=== PATIENT | female | born 1960 | race Caucasian/White ===

== ENCOUNTER → 2016-12-12 | Outpatient (CLI) | payer MEDICARE, MEDICAID ==
--- NOTE | 2016-12-12 16:05 | Diagnostic Imaging Report ---
CLINICAL INDICATION: Patient has had a total of 4 back surgeries. Patient had surgery in June from L2 to hips. Screws may have come loose. EXAM: Axial CT scan of the lumbar spine performed without IV contrast. Sagittal and coronal reformatted images are created. COMPARISON: MRI of the lumbar spine without contrast dated 04/09/2016. FINDINGS: There are interval postop changes with L2-S1 and iliac posterior lumbar fusion with bilateral spanning rods and pedicle screws. There are intervertebral disc fusion spacers seen at the L4-L5 and L5-S1 level. There is some degree of intervertebral bony fusion in the regions. There is osteolysis about the bilateral L2 pedicle screws which demonstrates roughly 2-3 mm of lucency. There is a small area of corticated lucency about the left iliac screw near the sacroiliac joint region. There is no hardware fracture. There are anterior fusion screws seen within the L4 and S1 vertebral bodies holding in the intervertebral disc fusion spacer. There are right L4 and L5 laminectomy changes. Electronic bone stimulator device is seen adjacent to the posterior elements of the lumbar spine. There is stable straightening of the upper lumbar spine. There is no evidence of acute lumbar spine fracture or dislocation. There is hypertrophic vertebral body spur seen throughout the lumbar spine and lumbar spine facet arthropathy. L1-L2: Unremarkable. L2-L3: Streak artifact greatly limits evaluation of the central canal from the L2-S1 levels. There is again seen multilevel neuroforaminal narrowing as noted on the prior study, but streak artifact also obscures regions. There is diverticulosis involving the visualized sigmoid colon with no definite CT evidence of diverticulitis. IMPRESSION: 1: There are interval postop changes with L2 through sacrum/iliac posterior fusion hardware. There is osteolysis involving the bilateral L2 pedicle screws. There is also a small area of corticated lucency about the left iliac screw near the sacroiliac joint. 2: There appears to be some degree of intervertebral bony fusion at the L4-L5 and L5-S1 levels. 3: Of note, visualization of the central canal and neuroforamen regions is greatly limited by hardware streak artifact. Dictated by: Dictated on workstation # [id number]
== END ==
LOC: RAD 13:54
PROVIDERS: ATTEND Orthopaedic Surgery Orthopaedic Surgery of the Spine
DX: Z98.1 Arthrodesis status (principal); K57.30 Diverticulosis of large intestine without perforation or abscess without bleeding
CPT/HCPCS: 72131